=== PATIENT | female | born 1990 | race Caucasian/White ===

== ENCOUNTER 2020-08-29 12:58 | Emergency (ER) | payer OTHER ==
[~2020-08-29] VITALS: Ht 175.3 cm; Wt 72.6 kg
[~2020-08-29 12:58] MED LIST: NORCO 5-325 TA1 EAC1 PO; ONDANSETRON HCL4 M2 PO; ZOFRAN ODT4 MG PO
[2020-08-29 13:31] LABS: URINE BILIRUBIN NEGATIVE (Negative); URINE BLOOD 3+ (Negative); URINE CLARITY CLEAR; URINE COLOR YELLOW; URINE GLUCOSE-RANDOM NEGATIVE (Negative); URINE KETONES NEGATIVE (Negative); URINE LEUKOCYTES-REFLEX 1+ (Negative); URINE NITRITE-REFLEX NEGATIVE (Negative); URINE PROTEIN NEGATIVE (Negative); URINE UROBILINOGEN 0.2 E.U./dl (0.2-1.0)
[2020-08-29 13:33] LABS: ABSOLUTE EOSINOPHILS 0.1 thou/uL (0.0-0.7); ABSOLUTE LYMPHOCYTES 1.4 thou/uL (0.8-5.3); ABSOLUTE MONOCYTES 0.2 thou/uL (0.0-1.2); ABSOLUTE NEUTROPHILS 3.8 thou/uL (1.6-8.1); BASOPHILS 0.7 %; EOSINOPHILS 2.5 %; HEMATOCRIT 35.9 % (37.0-47.0); HEMOGLOBIN 11.9 gm/dL (12.0-15.0); LYMPHOCYTES 24.4 %; MCH 29.2 pg (26.0-34.0); MCHC 33.1 g/dL (28.0-37.0); MCV 88.3 fL (80.0-100.0); MONOCYTES 4.4 %; MPV 7.7 fl. (7.2-11.1); NUCLEATED RBCS 0 /100WBC; PLATELET COUNT* 283 thou/uL (150-400); RBC 4.07 mil/uL (4.20-5.00); RDW-CV 16.3 % (10.5-14.5); WBC 5.6 thou/uL (4.0-11.0)
[2020-08-29 13:38] LABS: CALCIUM 8.7 mg/dL (8.5-10.1); CREATININE 0.7 mg/dL (0.6-1.3); POTASSIUM 3.7 mmol/L (3.5-5.1); SQUAMOUS 0-3 Few /LPF (0-3); URINE WBC-REFLEX 0-5 Rare /HPF (0-5)
[2020-08-29 13:39] LABS: BACTERIA-REFLEX 1-9 Few /HPF (None Seen); CASTS None Seen /LPF (None Seen); CRYSTALS None Seen /LPF (None Seen)
[2020-08-29 13:42] LABS: ALBUMIN 3.5 g/dL (3.4-5.0); TOTAL BILIRUBIN 0.2 mg/dL (<0.1-1.0); TOTAL PROTEIN 7.2 g/dL (6.4-8.2)
[2020-08-29] MEDS ORDERED: ZOFRAN ODT4 MG PO (16:28)
[2020-08-29] MEDS ORDERED: PREDNISONE 10 M10 MG PO (16:28)
[2020-08-29] MEDS ORDERED: HYDROCODON-ACE1 EAC7 PO (16:31)
[2020-08-29 16:38] VITALS: BP 134/54
== END 2020-08-29 16:38 | disposition home or self-care (01) ==
LOC: M.ERS 12:58
PROVIDERS: Nurse Practitioner Family
DX: K50.90 Crohn's disease, unspecified, without complications (principal); Z88.5 Allergy status to narcotic agent; Z88.8 Allergy status to other drugs, medicaments and biological substances; Z90.49 Acquired absence of other specified parts of digestive tract

== ENCOUNTER 2020-09-21 14:41 | Emergency (ER) | payer OTHER ==
[~2020-09-21] VITALS: Ht 175.3 cm; Wt 76.2 kg
[~2020-09-21 14:41] MED LIST changes: +HYDROCODON-ACE1 EAC7 PO; +PREDNISONE 10 M10 MG PO
[2020-09-21 15:11] LABS: URINE BILIRUBIN NEGATIVE (Negative); URINE BLOOD 1+ (Negative); URINE CLARITY CLEAR; URINE COLOR YELLOW; URINE GLUCOSE-RANDOM NEGATIVE (Negative); URINE KETONES NEGATIVE (Negative); URINE LEUKOCYTES NEGATIVE (Negative); URINE NITRITE NEGATIVE (Negative); URINE PROTEIN NEGATIVE (Negative); URINE SPECIFIC GRAVITY 1.025 (1.005-1.030); URINE UROBILINOGEN 0.2 E.U./dl (0.2-1.0)
[2020-09-21 15:25] LABS: BACTERIA 1-9 Few /HPF (None Seen); CASTS None Seen /LPF (None Seen); CRYSTALS None Seen /LPF (None Seen); MUCUS None Seen strn/LPF (None Seen); SQUAMOUS >10 Many /LPF (0-3); URINE WBC 0-5 Rare /HPF (0-5)
[2020-09-21 15:26] LABS: URINE RBC 0-2 Rare /HPF (0-2)
[2020-09-21 16:39] LABS: ABSOLUTE EOSINOPHILS 0.1 thou/uL (0.0-0.7); ABSOLUTE LYMPHOCYTES 1.6 thou/uL (0.8-5.3); ABSOLUTE MONOCYTES 0.4 thou/uL (0.0-1.2); ABSOLUTE NEUTROPHILS 4.4 thou/uL (1.6-8.1); BASOPHILS 0.6 %; EOSINOPHILS 1.1 %; HEMATOCRIT 32.8 % (37.0-47.0); HEMOGLOBIN 11.1 gm/dL (12.0-15.0); LYMPHOCYTES 24.1 %; MCH 28.6 pg (26.0-34.0); MCHC 33.8 g/dL (28.0-37.0); MCV 84.6 fL (80.0-100.0); MONOCYTES 5.8 %; MPV 8.2 fl. (7.2-11.1); NUCLEATED RBCS 0 /100WBC; PLATELET COUNT* 226 thou/uL (150-400); POLYS 68.4 %; RBC 3.88 mil/uL (4.20-5.00); RDW-CV 16.6 % (10.5-14.5); WBC 6.5 thou/uL (4.0-11.0)
[2020-09-21 16:43] LABS: CREATININE 0.7 mg/dL (0.6-1.3); POTASSIUM 3.8 mmol/L (3.5-5.1)
[2020-09-21 16:48] LABS: ALBUMIN 3.2 g/dL (3.4-5.0); TOTAL BILIRUBIN 0.2 mg/dL (<0.1-1.0); TOTAL PROTEIN 6.2 g/dL (6.4-8.2)
[2020-09-21] MEDS ORDERED: ZOFRAN ODT4 MG PO (17:58)
[2020-09-21] MEDS ORDERED: PREDNISONE 10 M10 MG PO (17:58)
[2020-09-21] MEDS ORDERED: HYDROCODON-ACE1 EAC7 PO (18:01)
[2020-09-21 18:05] VITALS: BP 130/81
== END 2020-09-21 18:05 | disposition home or self-care (01) ==
LOC: M.ERS 14:41
PROVIDERS: Physician Assistant
DX: K50.90 Crohn's disease, unspecified, without complications (principal); R19.7 Diarrhea, unspecified; R10.32 Left lower quadrant pain; Z88.6 Allergy status to analgesic agent; Z88.8 Allergy status to other drugs, medicaments and biological substances; Z90.49 Acquired absence of other specified parts of digestive tract; Z90.89 Acquired absence of other organs

== ENCOUNTER 2020-09-29 12:54 | Emergency (ER) | payer OTHER ==
[~2020-09-29] VITALS: Ht 175.3 cm; Wt 63.5 kg
[2020-09-29 13:25] LABS: URINE BILIRUBIN NEGATIVE (Negative); URINE BLOOD NEGATIVE (Negative); URINE CLARITY CLEAR; URINE COLOR YELLOW; URINE GLUCOSE-RANDOM NEGATIVE (Negative); URINE KETONES NEGATIVE (Negative); URINE LEUKOCYTES-REFLEX NEGATIVE (Negative); URINE NITRITE-REFLEX NEGATIVE (Negative); URINE PROTEIN NEGATIVE (Negative); URINE SPECIFIC GRAVITY 1.025 (1.005-1.030); URINE UROBILINOGEN 0.2 E.U./dl (0.2-1.0)
[2020-09-29 13:36] LABS: ABSOLUTE EOSINOPHILS 0.1 thou/uL (0.0-0.7); ABSOLUTE LYMPHOCYTES 0.6 thou/uL (0.8-5.3); ABSOLUTE MONOCYTES 0.4 thou/uL (0.0-1.2); ABSOLUTE NEUTROPHILS 2.8 thou/uL (1.6-8.1); BASOPHILS 0.5 %; EOSINOPHILS 1.6 %; HEMATOCRIT 36.3 % (37.0-47.0); HEMOGLOBIN 12.1 gm/dL (12.0-15.0); LYMPHOCYTES 16.1 %; MCH 28.4 pg (26.0-34.0); MCHC 33.3 g/dL (28.0-37.0); MCV 85.1 fL (80.0-100.0); MONOCYTES 10.3 %; MPV 8.3 fl. (7.2-11.1); NUCLEATED RBCS 0 /100WBC; PLATELET COUNT* 226 thou/uL (150-400); POLYS 71.5 %; RBC 4.27 mil/uL (4.20-5.00); RDW-CV 17.4 % (10.5-14.5); WBC 3.9 thou/uL (4.0-11.0)
[2020-09-29 13:41] LABS: CALCIUM 8.5 mg/dL (8.5-10.1); CREATININE 0.7 mg/dL (0.6-1.3); POTASSIUM 4.3 mmol/L (3.5-5.1)
[2020-09-29 13:46] LABS: ALBUMIN 3.4 g/dL (3.4-5.0); TOTAL BILIRUBIN 0.3 mg/dL (<0.1-1.0)
[2020-09-29] MEDS ORDERED: ONDANSETRON HCL4 M2 PO (14:39)
[2020-09-29] MEDS ORDERED: NORCO5 PO (14:39)
[2020-09-29 15:00] VITALS: BP 132/91
== END 2020-09-29 15:00 | disposition home or self-care (01) ==
LOC: M.ERS 12:54
PROVIDERS: Physician Assistant
DX: K50.90 Crohn's disease, unspecified, without complications (principal); Z88.6 Allergy status to analgesic agent; Z88.8 Allergy status to other drugs, medicaments and biological substances; Z90.89 Acquired absence of other organs; Z90.49 Acquired absence of other specified parts of digestive tract

== ENCOUNTER 2020-10-04 22:50 | Inpatient (IN) | payer OTHER ==
[~2020-10-04] VITALS: Ht 175.3 cm; Wt 76.2 kg
--- NOTE | ~2020-10-04 | CON ---
[address] [address] CONSULTATION Name: FRANCISCO HALEY Room: [address] IN [place].#: [id number] Admission: 10/05/20 Attend Phys: Yessica Slaughter Discharge: Date of : 88 Report #: [id number] THIS REPORT FOR: cc: Pedro Cornelius John R. DO Pervez, Adeel MD ~ DOC #: [id number] Tenzin Lei MD DATE OF CONSULTATION: 10/05/2020 REQUESTING PHYSICIAN: Dr. Goyo Chanel. INDICATION FOR CONSULTATION: Abnormal CT chest. HISTORY OF PRESENT ILLNESS: This is a 30-year-old female; past medical history includes a history of Crohn's disease. The patient previously has been immunosuppressed with Imuran for Crohn's disease. The patient is reported to have recently given after being . She was taken off amiodarone according to records when she was . The patient currently is not reported to be on any medications for Crohn's disease. The patient has had multiple recent admissions to our emergency room with abdominal pain. Has had vomiting as well. At this time, the patient has again presented with the complaint of vomiting as well as nausea and abdominal pain, but when I asked her directly, it appears that she has more respiratory complaints than sleep complaints. She has had a high-grade fever above 101 degrees Fahrenheit. She has also been coughing. She has been bringing up yellow and green sputum. She also has been short of breath. She has had some abdominal pain, does not have swelling of lower extremities, does not have coughing. She does report chills. She answers to negative for 12 questions for review of systems, except as mentioned above. PAST MEDICAL HISTORY: Crohn's disease, previously on Imuran, recent , which is reported to have ended around a month or more ago, currently not on long-term medications for Crohn's, status post appendectomy, cholecystectomy, history of hives. SOCIAL HISTORY: No known history of smoking, ethanol abuse, or drug abuse. CURRENT MEDICATIONS: List in [facility] Reviewed. HOME MEDICATIONS: Also in [facility] reviewed. Note that she has been prescribed narcotics for pain control. ALLERGIES: NISH, HAD HIVES WITH TORADOL ALSO WITH REGLAN, [place] [address] CONSULTATION Name: FRANCISCO HALEY Room: [address] IN [facility].#: [id number] Admission: 10/05/20 Attend Phys: Yessica Slaughter Discharge: Date of : 88 Report #: [id number] ADVERSE REACTION TO COMPAZINE; HOWEVER, NOT CERTAIN IF THE PATIENT'S ALLERGY HISTORY IS ACCURATE THE PATIENT RECEIVED PROMETHAZINE TODAY WITHOUT ANY ADVERSE REACTION. FAMILY HISTORY: There is no pertinent family history known at this time. PHYSICAL EXAMINATION: GENERAL: She is alert, awake and oriented. She was occasionally coughing during exam. VITAL SIGNS: Had a pulse of 85 and a blood pressure of 113/66. She is not on supplemental oxygen. She is saturating around 96-98%, heart rate is 85, respiratory rate was mildly elevated to around 20-22. She is afebrile with a temperature of 36.4. HEENT: Head is normocephalic and atraumatic. Pupils are equal and reactive. There is no throat erythema. NECK: Does not show raised JVP asymmetry, mass or lymph nodes. CHEST: Symmetrical expansion on inspection and palpation. On auscultation, breath sounds are bilaterally equal, but decreased. Expirations are prolonged. There are bilateral expiratory wheezes. HEART: Regular. There is no murmur. ABDOMEN: Soft and nontender. LOWER EXTREMITIES: Show no edema, no calf tenderness. SKIN: Dry and intact. NEUROLOGIC: Moves all extremities bilaterally equally and spontaneously with no focal deficit identified. LABORATORY DATA: The patient had a CT of the chest performed. This was performed with IV dye, pulmonary artery were reported to be normal, although this is not a CTA protocol. There is an infiltrate in the left lower lobe, which is new compared with the CT performed in August. There is a nodule in the right upper lobe. I do not have a comparison available for this. The patient's lab work is in [facility] and this is reviewed. The patient's COVID-19 antigen is negative. The patient had a CT of the abdomen and pelvis as well; I reviewed the report, had an ultrasound of the abdomen, I reviewed the report as well. ASSESSMENT AND PLAN: 1. Community-acquired pneumonia/pulmonary infiltrate; infiltrate in the left lower lobe is new compared with August. This is consistent with community-acquired pneumonia. I would treat accordingly. A pulmonary infarction can also give this picture; however, this does not appear likely. The patient did have a CT chest with IV dye, although this is not with PE protocol. The pulmonary arteries are reported to be normal. The patient is already on ceftriaxone. I [address] [address] CONSULTATION Name: FRANCISCO HALEY Room: [address] ADM IN [facility]#: [id number] Admission: 10/05/20 Attend Phys: Yessica Slaughter Discharge: Date of : 88 Report #: [id number] went ahead and ordered an additional dose. We will broaden coverage to add atypicals with azithromycin. More cultures and serologies are also ordered. Note that the patient has a history of Crohn's disease and previously has been on Imuran. Therefore, a case can be made to broaden antibiotic coverage to include methicillin-resistant Staphylococcus aureus as well as Pseudomonas; however, the patient currently is not on Imuran and also, I would like to at least obtain a sputum culture as well as a nasal swab for methicillin-resistant Staphylococcus aureus before considering broadening antibiotic coverage as the patient currently is stable; I therefore did not do the same. In case the patient's condition deteriorates, I would have a low threshold of switching ceftriaxone over to cefepime and adding vancomycin. 2. Lung nodule. There is a nodule in the right upper lobe. This could be secondary to atypical pneumonia. This could in fact also be related to her Crohn's disease. We do not have a previous comparison and therefore the chronicity of this finding is not known. A fungal infection or malignancy can give this picture; however, at this time appears to be much less likely. I would recommend obtaining a repeat CT chest in 2-3 months to follow up on this. I would also broaden antibiotics to include atypicals as above. Urine for histoplasma antigen was also ordered. 3. Bronchospasm on my exam, the patient is actively bronchospastic. This is despite the fact that she does not have a history of bronchial asthma or chronic obstructive pulmonary disease. For now, we will go ahead and give her Solu-Medrol. We will also give her nebulized bronchodilators. We will reassess tomorrow and adjust accordingly. 4. History of Crohn's disease, no obvious sign of exacerbation with the exception that she did have nausea and vomiting, which may or may not be related. 5. Elevated liver function tests. We will follow; I obtained a lipase, which is normal. Viral hepatitis profile is pending. 6. Fluid and electrolytes. She is in fact appears to be well hydrated at this time. Note that the BUN is only 8 but considering that she appears to have an active infection and that she was on room air, I continued IV fluids already ordered but I would be inclined to discontinue these in a.m. if not obviously otherwise indicated to avoid development of fluid overload. 7. Deep vein thrombosis prophylaxis, on Lovenox. 8. Nausea and vomiting, present on admission. Thanks for this consultation. Tenzin Lei MD /[place] [address] CONSULTATION Name: FRANCISCO HALEY Room: [address] IN [facility]#: [id number] Admission: 10/05/20 Attend Phys: Yessica Slaughter Discharge: Date of : 88 Report #: [id number] By: [id number] cj Olvera
[~2020-10-04 22:50] MED LIST changes: +NORCO5 PO
[2020-10-04 23:12] VITALS: BP 151/93
[2020-10-04 23:29] LABS: URINE BILIRUBIN NEGATIVE (Negative); URINE BLOOD NEGATIVE (Negative); URINE CLARITY SL CLOUDY; URINE COLOR YELLOW; URINE GLUCOSE-RANDOM NEGATIVE (Negative); URINE KETONES TRACE (Negative); URINE LEUKOCYTES-REFLEX NEGATIVE (Negative); URINE NITRITE-REFLEX POSITIVE (Negative); URINE PROTEIN NEGATIVE (Negative); URINE UROBILINOGEN 0.2 E.U./dl (0.2-1.0)
[2020-10-04 23:37] LABS: AMP/METHAMP Negative (Negative); BARBITURATES Negative (Negative); BENZODIAZEPINES Negative (Negative); COCAINE Negative (Negative); METHADONE Negative (Negative); OPIATES POSITIVE (Negative); PCP Negative (Negative); THC Negative (Negative)
[2020-10-04 23:44] LABS: ABSOLUTE EOSINOPHILS 0.2 thou/uL (0.0-0.7); ABSOLUTE LYMPHOCYTES 2.1 thou/uL (0.8-5.3); ABSOLUTE MONOCYTES 0.5 thou/uL (0.0-1.2); ABSOLUTE NEUTROPHILS 3.7 thou/uL (1.6-8.1); BASOPHILS 0.6 %; EOSINOPHILS 3.2 %; HEMATOCRIT 37.2 % (37.0-47.0); HEMOGLOBIN 12.7 gm/dL (12.0-15.0); MCH 28.4 pg (26.0-34.0); MCV 83.5 fL (80.0-100.0); MONOCYTES 7.7 %; MPV 8.1 fl. (7.2-11.1); NUCLEATED RBCS 0 /100WBC; PLATELET COUNT* 274 thou/uL (150-400); POLYS 56.5 %; RBC 4.46 mil/uL (4.20-5.00); RDW-CV 16.9 % (10.5-14.5); WBC 6.6 thou/uL (4.0-11.0)
[2020-10-04 23:45] LABS: BACTERIA-REFLEX >30 Many /HPF (None Seen); CASTS None Seen /LPF (None Seen); CRYSTALS None Seen /LPF (None Seen); MUCUS 4-6 Moderate strn/LPF (None Seen); SQUAMOUS >10 Many /LPF (0-3); URINE RBC 0-2 Rare /HPF (0-2); URINE WBC-REFLEX 6-15 Few /HPF (0-5); WBC CLUMPS Few (None Seen)
[2020-10-05 07:51] LABS: ALBUMIN 3.7 g/dL (3.4-5.0); CALCIUM 9.1 mg/dL (8.5-10.1); CREATININE 0.8 mg/dL (0.6-1.3); POTASSIUM 3.9 mmol/L (3.5-5.1); TOTAL BILIRUBIN 0.2 mg/dL (<0.1-1.0); TOTAL PROTEIN 7.6 g/dL (6.4-8.2)
[2020-10-05 07:55] VITALS: BP 106/49
[2020-10-05 14:39] LABS: ABSOLUTE EOSINOPHILS 0.2 thou/uL (0.0-0.7); ABSOLUTE LYMPHOCYTES 1.9 thou/uL (0.8-5.3); ABSOLUTE MONOCYTES 0.4 thou/uL (0.0-1.2); ABSOLUTE NEUTROPHILS 2.2 thou/uL (1.6-8.1); BASOPHILS 0.7 %; EOSINOPHILS 3.9 %; HEMATOCRIT 34.6 % (37.0-47.0); HEMOGLOBIN 11.6 gm/dL (12.0-15.0); LYMPHOCYTES 40.8 %; MCH 28.2 pg (26.0-34.0); MCHC 33.4 g/dL (28.0-37.0); MCV 84.3 fL (80.0-100.0); MONOCYTES 8.1 %; MPV 8.3 fl. (7.2-11.1); NUCLEATED RBCS 0 /100WBC; PLATELET COUNT* 238 thou/uL (150-400); POLYS 46.5 %; RDW-CV 16.8 % (10.5-14.5); WBC 4.8 thou/uL (4.0-11.0)
[2020-10-05 14:48] LABS: ALBUMIN 2.9 g/dL (3.4-5.0); CALCIUM 8.4 mg/dL (8.5-10.1); CREATININE 0.7 mg/dL (0.6-1.3); POTASSIUM 4.2 mmol/L (3.5-5.1); TOTAL BILIRUBIN 0.2 mg/dL (<0.1-1.0); TOTAL PROTEIN 6.3 g/dL (6.4-8.2)
[2020-10-05 15:36] VITALS: BP 113/66
[2020-10-05 21:10] VITALS: BP 88/50
[2020-10-06 02:06] LABS: HEPATITIS B SURFACE AG Negative (Negative)
[2020-10-06 06:32] LABS: ABSOLUTE LYMPHOCYTES 0.8 thou/uL (0.8-5.3); ABSOLUTE MONOCYTES 0.2 thou/uL (0.0-1.2); ABSOLUTE NEUTROPHILS 4.9 thou/uL (1.6-8.1); BASOPHILS 0.1 %; HEMATOCRIT 34.2 % (37.0-47.0); HEMOGLOBIN 11.4 gm/dL (12.0-15.0); LYMPHOCYTES 14.1 %; MCH 28.1 pg (26.0-34.0); MCHC 33.3 g/dL (28.0-37.0); MCV 84.5 fL (80.0-100.0); MONOCYTES 3.2 %; MPV 8.3 fl. (7.2-11.1); NUCLEATED RBCS 0 /100WBC; PLATELET COUNT* 240 thou/uL (150-400); POLYS 82.6 %; RBC 4.05 mil/uL (4.20-5.00); RDW-CV 16.6 % (10.5-14.5)
[2020-10-06 06:52] LABS: ALBUMIN 3.2 g/dL (3.4-5.0); CALCIUM 8.9 mg/dL (8.5-10.1); CREATININE 0.8 mg/dL (0.6-1.3); MAGNESIUM 1.8 mg/dL (1.8-2.4); POTASSIUM 3.9 mmol/L (3.5-5.1); TOTAL BILIRUBIN 0.2 mg/dL (<0.1-1.0)
[2020-10-06 08:00] VITALS: BP 116/65
[2020-10-06] MEDS ORDERED: CEFDINIR300 MG PO (10:10)
[2020-10-06] MEDS ORDERED: AZITHROMYCIN500 MG PO (10:10)
[2020-10-06] MEDS ORDERED: PREDNISONE 10 M10 MG PO (10:43)
[2020-10-06] MEDS ORDERED: PROTONIX40 M4 PO (10:44)
[2020-10-06 11:02] VITALS: BP 116/65
[2020-10-06 11:50] VITALS: BP 116/65
== END 2020-10-06 11:45 | disposition home or self-care (01) | DRG 178 ==
LOC: M.ERS 22:50 → M.TBA-ER 10-05 00:25 → M.ORTHSURG 10-05 10:20
PROVIDERS: Emergency Medicine; Internal Medicine; ADMIT Internal Medicine; ATTEND Internal Medicine
DX: J15.6 Pneumonia due to other Gram-negative bacteria (principal); K50.90 Crohn's disease, unspecified, without complications; R91.1 Solitary pulmonary nodule; J47.9 Bronchiectasis, uncomplicated; D71 Functional disorders of polymorphonuclear neutrophils; Z20.822 Contact with and (suspected) exposure to COVID-19; Z90.49 Acquired absence of other specified parts of digestive tract; Z88.8 Allergy status to other drugs, medicaments and biological substances

== ENCOUNTER 2020-10-09 15:16 | Emergency (ER) | payer OTHER ==
[~2020-10-09] VITALS: Ht 175.3 cm; Wt 76.2 kg
[~2020-10-09 15:16] MED LIST changes: +AZITHROMYCIN500 MG PO; +CEFDINIR300 MG PO; +PROTONIX40 M4 PO
[2020-10-09 18:36] LABS: ABSOLUTE EOSINOPHILS 0.1 thou/uL (0.0-0.7); ABSOLUTE LYMPHOCYTES 1.6 thou/uL (0.8-5.3); ABSOLUTE MONOCYTES 0.4 thou/uL (0.0-1.2); ABSOLUTE NEUTROPHILS 5.4 thou/uL (1.6-8.1); BASOPHILS 0.5 %; EOSINOPHILS 1.4 %; HEMATOCRIT 33.1 % (37.0-47.0); HEMOGLOBIN 11.2 gm/dL (12.0-15.0); LYMPHOCYTES 21.5 %; MCHC 33.9 g/dL (28.0-37.0); MCV 82.7 fL (80.0-100.0); MONOCYTES 5.1 %; MPV 7.6 fl. (7.2-11.1); NUCLEATED RBCS 0 /100WBC; PLATELET COUNT* 262 thou/uL (150-400); POLYS 71.5 %; RDW-CV 16.6 % (10.5-14.5); WBC 7.6 thou/uL (4.0-11.0)
[2020-10-09 18:43] LABS: CALCIUM 8.8 mg/dL (8.5-10.1); CREATININE 0.8 mg/dL (0.6-1.3); POTASSIUM 3.4 mmol/L (3.5-5.1)
[2020-10-09 18:48] LABS: ALBUMIN 3.6 g/dL (3.4-5.0); TOTAL BILIRUBIN 0.3 mg/dL (<0.1-1.0)
[2020-10-09] MEDS ORDERED: PHENERGAN 25 MG25 M1 PO (20:33)
[2020-10-09] MEDS ORDERED: NORCO5 PO (20:38)
[2020-10-09 21:29] VITALS: BP 135/93
--- NOTE | 2020-10-10 10:03 | EKG ---
[place] [address] ELECTROCARDIOGRAM REPORT Name: FRANCISCO HALEY Room: 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: [facility] : 1990 Requested By: Katey Olguin Order Number: [id number] MD: Jose Boudreaux Measurements Intervals [place] Rate: 100 P: 75 RI: 141 QRS: 74 QRSD: 105 T: 14 QT: 342 QTc: 442 Interpretive Statements Sinus tachycardia Consider left atrial enlargement RSR' in V1 or V2, right VCD or RVH Borderline T abnormalities, anterior leads No previous ECG available for comparison Electronically Signed On 10-10-2020 10:03:44 CDT by Jose Boudreaux [email or web address] <ELECTRONICALLY SIGNED> By: Jose Boudreaux MD, FACC 10/10/20 1003 183 183 Jose Boudreaux MD, FAC /EPI
== END 2020-10-09 21:29 | disposition home or self-care (01) ==
LOC: M.ERS 15:16
PROVIDERS: Nurse Practitioner Family
DX: Z87.01 Personal history of pneumonia (recurrent) (principal); Z20.822 Contact with and (suspected) exposure to COVID-19; G89.29 Other chronic pain; R10.84 Generalized abdominal pain; R11.2 Nausea with vomiting, unspecified; K50.90 Crohn's disease, unspecified, without complications; Z88.6 Allergy status to analgesic agent; Z88.8 Allergy status to other drugs, medicaments and biological substances; Z90.49 Acquired absence of other specified parts of digestive tract

== ENCOUNTER 2020-10-26 14:46 | Emergency (ER) | payer OTHER ==
[~2020-10-26] VITALS: Ht 175.3 cm; Wt 76.2 kg
[~2020-10-26 14:46] MED LIST changes: +PHENERGAN 25 MG25 M1 PO
[2020-10-26] MEDS ORDERED: ZOFRAN ODT4 MG DISSOLVE (15:16)
[2020-10-26] MEDS ORDERED: PHENERGAN 25 MG25 M1 PO (15:16)
[2020-10-26] MEDS ORDERED: PREDNISONE 20 M20 M1 PO (15:16)
[2020-10-26] MEDS ORDERED: HYDROCODON-ACE1 EAC7 PO (15:16)
[2020-10-26 15:45] VITALS: BP 115/75
== END 2020-10-26 15:54 | disposition home or self-care (01) ==
LOC: M.ERS 14:46
DX: G89.29 Other chronic pain (principal); R10.84 Generalized abdominal pain; R11.2 Nausea with vomiting, unspecified; Z88.6 Allergy status to analgesic agent; Z88.8 Allergy status to other drugs, medicaments and biological substances; Z90.49 Acquired absence of other specified parts of digestive tract; Z87.01 Personal history of pneumonia (recurrent)

== ENCOUNTER 2020-10-31 15:03 | Emergency (ER) | payer OTHER ==
[~2020-10-31] VITALS: Ht 175.3 cm; Wt 76.2 kg
[~2020-10-31 15:03] MED LIST changes: +PREDNISONE 20 M20 M1 PO; +ZOFRAN ODT4 MG DISSOLVE
[2020-10-31] MEDS ORDERED: IBUPROFEN 800800 M1 PO (16:54)
[2020-10-31 17:02] VITALS: BP 141/96
[2020-10-31] MEDS ORDERED: VOLTAREN ARTHRI20 GM TOP (17:06)
== END 2020-10-31 17:03 | disposition home or self-care (01) ==
LOC: M.ERS 15:03
DX: S80.01XA Contusion of right knee, initial encounter (principal); K50.90 Crohn's disease, unspecified, without complications; Z88.6 Allergy status to analgesic agent; Z88.8 Allergy status to other drugs, medicaments and biological substances; Z90.49 Acquired absence of other specified parts of digestive tract; Z87.01 Personal history of pneumonia (recurrent); W10.8XXA Fall (on) (from) other stairs and steps, initial encounter; Y93.89 Activity, other specified; Y92.89 Other specified places as the place of occurrence of the external cause; Y99.8 Other external cause status

== ENCOUNTER 2020-11-08 12:40 | Emergency (ER) | payer OTHER ==
[~2020-11-08] VITALS: Ht 175.3 cm; Wt 76.2 kg
[~2020-11-08 12:40] MED LIST changes: +IBUPROFEN 800800 M1 PO; +VOLTAREN ARTHRI20 GM TOP
[2020-11-08 14:31] VITALS: BP 128/84
== END 2020-11-08 13:10 | disposition left against medical advice (07) ==
LOC: M.ERS 12:40
DX: Z53.21 Procedure and treatment not carried out due to patient leaving prior to being seen by health care provider (principal)

== ENCOUNTER 2020-11-24 20:42 | Emergency (ER) | payer OTHER ==
[~2020-11-24] VITALS: Ht 175.3 cm; Wt 77.1 kg
[2020-11-24 21:16] LABS: URINE BILIRUBIN NEGATIVE (Negative); URINE BLOOD 3+ (Negative); URINE CLARITY CLEAR; URINE COLOR YELLOW; URINE GLUCOSE-RANDOM NEGATIVE (Negative); URINE KETONES NEGATIVE (Negative); URINE LEUKOCYTES-REFLEX NEGATIVE (Negative); URINE NITRITE-REFLEX NEGATIVE (Negative); URINE PROTEIN NEGATIVE (Negative); URINE UROBILINOGEN 0.2 E.U./dl (0.2-1.0)
[2020-11-24 21:23] LABS: AMP/METHAMP Negative (Negative); BARBITURATES Negative (Negative); BENZODIAZEPINES Negative (Negative); COCAINE Negative (Negative); METHADONE Negative (Negative); OPIATES Negative (Negative); PCP Negative (Negative); THC Negative (Negative)
[2020-11-24 21:30] LABS: BACTERIA-REFLEX 1-9 Few /HPF (None Seen); CASTS None Seen /LPF (None Seen); CRYSTALS None Seen /LPF (None Seen); SQUAMOUS 0-3 Few /LPF (0-3); URINE RBC >20 Many /HPF (0-2); URINE WBC-REFLEX 0-5 Rare /HPF (0-5)
[2020-11-25 00:32] LABS: ABSOLUTE BASOPHILS 0.1 thou/uL (0.0-0.2); ABSOLUTE EOSINOPHILS 0.3 thou/uL (0.0-0.7); ABSOLUTE LYMPHOCYTES 1.7 thou/uL (0.8-5.3); ABSOLUTE MONOCYTES 0.3 thou/uL (0.0-1.2); ABSOLUTE NEUTROPHILS 3.2 thou/uL (1.6-8.1); EOSINOPHILS 4.5 %; HEMATOCRIT 35.8 % (37.0-47.0); HEMOGLOBIN 11.8 gm/dL (12.0-15.0); LYMPHOCYTES 31.2 %; MCH 26.6 pg (26.0-34.0); MCV 80.6 fL (80.0-100.0); MONOCYTES 5.7 %; MPV 8.6 fl. (7.2-11.1); NUCLEATED RBCS 0 /100WBC; PLATELET COUNT* 264 thou/uL (150-400); POLYS 57.6 %; RBC 4.44 mil/uL (4.20-5.00); RDW-CV 17.9 % (10.5-14.5); WBC 5.6 thou/uL (4.0-11.0)
[2020-11-25 00:37] LABS: CREATININE 0.8 mg/dL (0.6-1.3); POTASSIUM 3.7 mmol/L (3.5-5.1)
[2020-11-25] MEDS ORDERED: HYDROCODON-ACE1 EAC8 PO (01:29)
[2020-11-25] MEDS ORDERED: PHENERGAN 25 MG25 M1 PO (01:29)
[2020-11-25] MEDS ORDERED: PREDNISONE50 MG PO (01:34)
[2020-11-25 01:48] VITALS: BP 136/82
== END 2020-11-25 01:48 | disposition home or self-care (01) ==
LOC: M.ERS 20:42
PROVIDERS: Emergency Medicine
DX: K50.90 Crohn's disease, unspecified, without complications (principal); Z90.89 Acquired absence of other organs; Z90.49 Acquired absence of other specified parts of digestive tract; Z88.6 Allergy status to analgesic agent; Z88.8 Allergy status to other drugs, medicaments and biological substances

== ENCOUNTER 2020-12-04 18:13 | Emergency (ER) | payer OTHER ==
[~2020-12-04] VITALS: Ht 175.3 cm; Wt 76.2 kg
[~2020-12-04 18:13] MED LIST changes: +HYDROCODON-ACE1 EAC8 PO; +PREDNISONE50 MG PO
[2020-12-04 20:28] LABS: URINE BILIRUBIN NEGATIVE (Negative); URINE BLOOD NEGATIVE (Negative); URINE CLARITY CLEAR; URINE COLOR YELLOW; URINE GLUCOSE-RANDOM NEGATIVE (Negative); URINE KETONES NEGATIVE (Negative); URINE LEUKOCYTES-REFLEX NEGATIVE (Negative); URINE NITRITE-REFLEX NEGATIVE (Negative); URINE PROTEIN NEGATIVE (Negative); URINE SPECIFIC GRAVITY 1.015 (1.005-1.030); URINE UROBILINOGEN 0.2 E.U./dl (0.2-1.0)
[2020-12-04 21:02] LABS: ABSOLUTE EOSINOPHILS 0.1 thou/uL (0.0-0.7); ABSOLUTE MONOCYTES 0.4 thou/uL (0.0-1.2); ABSOLUTE NEUTROPHILS 4.2 thou/uL (1.6-8.1); BASOPHILS 0.7 %; EOSINOPHILS 0.8 %; HEMATOCRIT 36.2 % (37.0-47.0); HEMOGLOBIN 11.6 gm/dL (12.0-15.0); LYMPHOCYTES 29.9 %; MCV 81.3 fL (80.0-100.0); MONOCYTES 5.8 %; MPV 8.2 fl. (7.2-11.1); NUCLEATED RBCS 0 /100WBC; PLATELET COUNT* 288 thou/uL (150-400); POLYS 62.8 %; RBC 4.46 mil/uL (4.20-5.00); RDW-CV 17.7 % (10.5-14.5); WBC 6.6 thou/uL (4.0-11.0)
[2020-12-04 21:15] LABS: CALCIUM 8.9 mg/dL (8.5-10.1); CREATININE 0.8 mg/dL (0.6-1.3); POTASSIUM 3.4 mmol/L (3.5-5.1)
[2020-12-04 21:19] LABS: TOTAL BILIRUBIN 0.3 mg/dL (<0.1-1.0); TOTAL PROTEIN 7.1 g/dL (6.4-8.2)
[2020-12-04] MEDS ORDERED: ZOFRAN ODT4 MG PO (22:00)
[2020-12-04] MEDS ORDERED: NORCO5 PO (22:01)
[2020-12-04] MEDS ORDERED: PHENERGAN 25 MG25 M1 PO (22:03)
[2020-12-04 22:19] VITALS: BP 122/86
== END 2020-12-04 22:19 | disposition home or self-care (01) ==
LOC: M.ERS 18:13
PROVIDERS: Nurse Practitioner Family
DX: R10.9 Unspecified abdominal pain (principal); R11.2 Nausea with vomiting, unspecified; R19.7 Diarrhea, unspecified; Z90.49 Acquired absence of other specified parts of digestive tract; Z88.8 Allergy status to other drugs, medicaments and biological substances; Z88.6 Allergy status to analgesic agent

== ENCOUNTER 2020-12-25 12:06 | Emergency (ER) | payer OTHER, MEDICAID ==
[~2020-12-25] VITALS: Ht 175.3 cm; Wt 76.2 kg
[2020-12-25] MEDS ORDERED: HUMIRA CRO40 MG/0.8 SUBQ (12:17)
[2020-12-25] MEDS ORDERED: PHENERGAN 25 MG25 M1 PO (12:22)
[2020-12-25] MEDS ORDERED: HYDROCODON-ACE1 EAC7 PO (12:22)
[2020-12-25] MEDS ORDERED: PREDNISONE 20 M20 M1 PO (12:22)
[2020-12-25 12:40] VITALS: BP 135/80
== END 2020-12-25 12:42 | disposition home or self-care (01) ==
LOC: M.ERS 12:06
DX: G89.29 Other chronic pain (principal); R10.84 Generalized abdominal pain; Z90.49 Acquired absence of other specified parts of digestive tract; Z79.899 Other long term (current) drug therapy; Z88.9 Allergy status to unspecified drugs, medicaments and biological substances; Z88.6 Allergy status to analgesic agent; Z88.8 Allergy status to other drugs, medicaments and biological substances; Z88.3 Allergy status to other anti-infective agents

== ENCOUNTER 2021-03-04 19:09 | Emergency (ER) | payer OTHER, MEDICAID ==
[~2021-03-04] VITALS: Ht 175.3 cm; Wt 76.2 kg
[~2021-03-04 19:09] MED LIST changes: +HUMIRA CRO40 MG/0.8 SUBQ; +PREDNISONE 10 M10 M1 PO
[2021-03-04] MEDS ORDERED: FOLIC ACID1 MG PO (19:21)
[2021-03-04] MEDS ORDERED: PENICILLIN V P500 MG PO (19:48)
[2021-03-04] MEDS ORDERED: HYDROCODON-ACE1 EAC7 PO (19:51)
[2021-03-04 20:04] VITALS: BP 133/67
== END 2021-03-04 20:04 | disposition home or self-care (01) ==
LOC: M.ERS 19:09
DX: S02.5XXA Fracture of tooth (traumatic), initial encounter for closed fracture (principal); Z90.49 Acquired absence of other specified parts of digestive tract; Z79.899 Other long term (current) drug therapy; Z88.8 Allergy status to other drugs, medicaments and biological substances; Z88.6 Allergy status to analgesic agent; X58.XXXA Exposure to other specified factors, initial encounter; Y93.89 Activity, other specified; Y92.89 Other specified places as the place of occurrence of the external cause; Y99.8 Other external cause status